=== PATIENT | male | born 2000 | race Caucasian/White ===

== ENCOUNTER 2022-04-24 15:29 | Emergency (ER) | payer SELFPAY ==
[~2022-04-24] VITALS: Ht 170.2 cm; Wt 87.0 kg
[2022-04-24] MEDS ORDERED: ACETAMINOPHEN 325MG TABLET PO STA (16:02)
[2022-04-24] MEDS ORDERED: IBUPROFEN 600MG TABLET PO STA (16:02)
[2022-04-24 16:41] VITALS: BP 129/78
[2022-04-24 17:50] LABS: BASOPHILS % 0.2 % (0.0-2.0); EOSINOPHILS % 0.6 % (0.0-5.0); HEMATOCRIT. 47.2 % (42.0-52.0); MEAN CORPUSCULAR HEMOGLOBIN 30.5 pg (28.0-32.0); MEAN CORPUSCULAR VOLUME 89.8 fL (80.0-94.0); MEAN PLATELET VOLUME 7.9 fl (7.4-10.4); MONOCYTES % 5.3 % (2.0-8.0); NEUTROPHILS % 74.9 % (40.0-76.0); PLATELET 245 x1000/uL (130-400); RED BLOOD CELL COUNT 5.25 mill/uL (4.7-6.1); RED CELL DISTRIBUTION WIDTH 13.6 % (11.6-14.6)
[2022-04-24 18:02] LABS: CHLORIDE 105 mEq/L (98-107)
[2022-04-24] MEDS ORDERED: IBUP-2028 MT (18:20)
== END 2022-04-24 18:47 | disposition home or self-care (01) ==
LOC: ER 15:29
DX: R07.89 Other chest pain (principal); V49.49XA Driver injured in collision with other motor vehicles in traffic accident, initial encounter; Y93.89 Activity, other specified; Y92.89 Other specified places as the place of occurrence of the external cause; Y99.8 Other external cause status
CPT/HCPCS: 36415; 71045; 80053; 84484; 85025; 93005; 99285